=== PATIENT | female | born 1940 | race Caucasian/White ===

== ENCOUNTER 2016-07-27 15:29 | Emergency (ER) | payer OTHER ==
[~2016-07-27] VITALS: Ht 152.4 cm; Wt 74.8 kg
--- NOTE | 2016-07-27 16:05 | ED GI/GU/ABDOMINAL COMPLAINT ---
History of Present Illness General Chief Complaint: General Adult Stated Complaint: RECTAL BLEEDING Source: patient, family Exam Limitations: no limitations Vital Signs & Intake/Output Vital Signs & Intake/Output Vital Signs Date Time Temp Pulse Resp B/P Pulse O2 O2 Flow FiO2 Ox Delivery Rate 07/27 2103 97.2 70 20 160/70 96 Room Air 07/27 1953 97.0 77 18 150/60 96 Room Air 07/27 1726 96 07/27 1725 97.2 82 18 169/80 96 Room Air 07/27 1536 96.7 79 16 145/74 100 Room Air ED Intake and Output 07/28 0000 07/27 1200 Intake Total Output Total Balance Patient 165 lb Weight Allergies Coded Allergies: No Known Allergies (07/27/16) Reconcile Medications Esomeprazole Magnesium (Nexium) (Unknown Strength) CAPSULE. (Unknown Dose) PO DAILY GI (Reported) Triage Note: PT TO ED FOR RECTAL BLEEDING, STATING SHE HAD A RUBBERBAND HEMMORHOID LIGATION APPROX [address] ENGEL, HAD TWO EPISODES OF BRB BLEEDING THIS AM. PT STATING SHE FEELS WELL, DENIES ANY N/V/D, DIZZINESS, LIGHTHEADEDNESS. DR ENGEL WOULD LIKE TO BE CALLED DIRECTLY AT [phone]. Triage Nurses Notes Reviewed? yes ? n Is pt currently ? No HPI: Patient is a 75-year-old female presents complaining of rectal bleeding. Patient reports she woke at 3:30 this morning, felt like she needed to have a bowel movement but reports that she only had bright red blood per rectum. Patient had another episode at 7 AM, 1 PM and approximately 2 PM. Patient reports that at 1 PM there were significant blood clots that were passed. Patient had hemorrhoid banding on 07/10/2016. Patient contacted her surgeon and was directed to come to the emergency department for further evaluation. Patient reports her pain is 0 out of 10. Patient was straining to have a bowel movement 2 days ago, otherwise bowel movements have been normal. Patient had a colonoscopy and endoscopy on August 2015 which showed hemorrhoids and a peptic ulcer. Patient reports that she felt mild lightheadedness when she had the first episode of bleeding, no lightheadedness currently. Patient denies chest pain, dyspnea, syncope, abdominal pain, nausea, vomiting, melena. (MAGDALENA HUANG,BAIMAEL) Past History Travel History Traveled to [place] past 21 day No Medical History Any Pertinent Medical History? see below for history Neurological: NONE EENT: NONE Cardiovascular: NONE Respiratory: NONE Gastrointestinal: GERD, HEMMORHOIDS Hepatic: NONE Renal: NONE Musculoskeletal: NONE Psychiatric: NONE Endocrine: NONE Blood Disorders: NONE Cancer(s): NONE Surgical History Surgical History: hemorrhoid banding Psychosocial History What is your primary language Persian Tobacco Use: Never used ETOH Use: occasional use Illicit Drug Use: denies illicit drug use Family History Hx Contributory? No (ABIMAEL TRAN) Review of Systems Review of Systems Constitutional: Denies: chills, fever. EENTM: Reports: no symptoms. Respiratory: Denies: cough, short of breath. Cardiovascular: Denies: chest pain, syncope. GI: Reports: see HPI. Genitourinary: Reports: no symptoms. Musculoskeletal: Reports: no symptoms. Skin: Reports: no symptoms. Neurological/Psychological: Reports: no symptoms. Hematologic/Endocrine: Reports: see HPI. Immunologic/Allergic: Reports: no symptoms. (ABIMAEL TRAN) Physical Exam Physical Exam General Appearance: well developed/nourished, alert, awake Head: atraumatic, normal appearance Eyes: Bilateral: normal appearance, PERRL, EOMI. Ears, Nose, Throat, Mouth: hearing grossly normal, moist mucous membrane Neck: normal inspection, supple, full range of motion Respiratory: normal breath sounds, chest non-tender, no respiratory distress, lungs clear Cardiovascular: regular rate/rhythm (no murmur) Gastrointestinal: normal bowel sounds, soft, non-tender Rectal: no external bleeding hemorrhoid. Small amount of bright red blood in the rectal vault. Stool brown Back: normal inspection, normal range of motion Extremities: normal range of motion Neurologic/Psych: no motor/sensory deficits, awake, alert, oriented x 3, normal gait, normal mood/affect Skin: intact, normal color, warm/dry Core Measures ACS in differential dx? No Severe Sepsis Present: No Septic Shock Present: No (ABIMAEL TRAN) Progress Differential Diagnosis: postprocedural bleeding, upper versus lower GI bleed, anemia Plan of Care: Orders Procedure Date/time Status MISTAKE 07/27 161 Active PROTHROMBIN TIME 07/27 161 Complete COMPREHENSIVE METABOLIC PANEL 07/27 1614 Complete CBC WITHOUT DIFFERENTIAL 02/12 1615 Complete TYPE & SCREEN (NOT X-MATCH) 07/27 1615 Complete Laboratory Tests 07/27/16 1621: Anion Gap 7, Estimated GFR > 60, BUN/Creatinine Ratio 20.0, Glucose 115 H, Calcium 9.2, Total Bilirubin 0.3, AST 22, ALT 29, Alkaline Phosphatase 64, Total Protein 6.4, Albumin 3.5, Globulin 2.9, Albumin/Globulin Ratio 1.2, PT 11.9, INR 1.13, CBC w Diff NO MAN DIFF REQ, RBC 3.90 L, MCV 90.0, MCH 30.2, RDW 14.2, MPV 8.4, Gran % 71.0, Lymphocytes % 17.8 L, Monocytes % 8.3, Eosinophils % 2.2, Basophils % 0.7, Absolute Granulocytes 5.1, Absolute Lymphocytes 1.3, Absolute Monocytes 0.6, Absolute Eosinophils 0.2, Absolute Basophils 0, PUBS MCHC 33.5 07/27/2016 4:59:33 PM: Discussed with Dr. Engel: recommend observing patient for several hours in the ED. Give LR at a slow rate, if any significant bleeding then call back and he will take to the OR. If after several hours of monitoring no further significant bleeding then can discharge home. 07/27/2016 7:23:16 PM: No further episodes of bleeding, patient resting comfortably, no complaints currently. Will continue to monitor and if no further episodes of bleeding then plan for discharge home. 07/27/2016 9:05:53 PM: Patient denies any further episodes of bleeding. Has been ambulatory without lightheadedness or symptoms present. Instructed to return immediately if any further bleeding. (ABIMAEL TRAN) Initial ED EKG: none (ABIMAEL TRAN) Departure Departure Disposition: HOME OR SELF CARE Condition: Stable Clinical Impression Primary Impression: Rectal bleeding Referrals: FRANKLIN GERONIMO,ANTOINE NOVAK MD,COCO SON (PCP/Family) Additional Instructions: Follow-up with your surgeon this week for further evaluation. Call tomorrow for appointment. Return to the emergency department if bleeding returns, abdominal pain, lightheadedness, or worsening of symptoms. Departure Forms: Customer Survey General Discharge Information (ABIMAEL TRAN) PA/I&C TECHNICIAN Co-Sign Statement Statement: ED Attending supervision documentation- [] I saw and evaluated the patient. I have also reviewed all the pertinent lab results and diagnostic results. I agree with the findings and the plan of care as documented in the PA's/I&C TECHNICIAN's documentation. [x] I have reviewed the ED Record and agree with the PA's/I&C TECHNICIAN's documentation. [] Additions or exceptions (if any) to the PAs/I&C TECHNICIAN's note and plan are summarized below: [] (ISIDORO GERONIMO,RIC Grimm)
[2016-07-27] MEDS ORDERED: NEXIUM20 M1 PO (16:12)
[2016-07-27 16:31] LABS: ABSOLUTE BASOPHIL COUNT 0 /CUMM (0.0-0.2); ABSOLUTE EOSINOPHIL COUNT 0.2 /CUMM (0.0-0.7); ABSOLUTE GRANULOCYTE CT 5.1 /CUMM (1.4-6.5); ABSOLUTE LYMPH COUNT 1.3 /CUMM (1.2-3.4); ABSOLUTE MONOCYTE COUNT 0.6 /CUMM (0.10-0.60); BASOPHIL % 0.7 % (0.0-2.0); EOSINOPHIL % 2.2 % (0-5); HEMATOCRIT 35.1 % (37-47); MEAN CORPUSCULAR HGB 30.2 PG (27.0-31.0); MEAN CORPUSCULAR HGB CONC 33.5 G/DL (33.0-37.0); MEAN PLATELET VOLUME 8.4 FL (7.4-10.4); PLATELET COUNT 207 /CUMM (130-400); RBC DISTRIBUTION WIDTH 14.2 % (11.5-14.5); WHITE BLOOD CELL COUNT 7.2 /CUMM (4.8-10.8)
[2016-07-27 16:43] LABS: PT 11.9 SEC (9.4-12.5)
[2016-07-27 21:04] VITALS: BP 160/70
== END 2016-07-27 21:06 ==
LOC: ERH 15:29
PROVIDERS: Physician Assistant
DX: K62.5 Hemorrhage of anus and rectum (principal)
CPT/HCPCS: 96374; J7120